=== PATIENT | male | born 1965 | race African-American/Black ===

== ENCOUNTER 2020-12-15 08:21 | Emergency (ER) | payer OTHER ==
[~2020-12-15] VITALS: Ht 175.3 cm; Wt 87.5 kg
[~2020-12-15 08:21] MED LIST: DIVA250T PO; DIVA500T4 PO; HYDR-2145 PO; IBUP-1027 PO; MIRT-34 PO
--- NOTE | 2020-12-15 08:54 | PHYS DOC ---
Past Medical History Past Medical History: Asthma, Hypertension Additional Past Medical Histor: RA, OSTEOARTHTITIS, Additional Past Surgical Histo: HERNIA X2, HEMORRHOID Smoking Status: Current Every Day Smoker Alcohol Use: None Drug Use: None General Adult EDM: Chief Complaint: DIZZY/LIGHT HEADED HPI: HPI: Patient is a 55 year old male who was in a facility for treatment, was sent over here because his blood pressure was elevated. Patient has history of asthma and high blood pressure. He has been out of his medication for a month. This morning they checked his vital signs and noted that his blood pressure was elevated. Patient complained of a mild headache so they sent him here for evaluation. Patient denies any numbness or weakness anywhere, no blurry vision, no chest pain, no abdominal pain, no nausea vomiting. Patient denies suicidal ideation denies homicidal ideation. Review of Systems: Review of Systems: Constitutional: Denies fever or chills. [] Eyes: Denies change in visual acuity. [] HENT: Denies nasal congestion or sore throat. [] Respiratory: Denies cough or shortness of breath. [] Cardiovascular: Denies chest pain or edema. [] GI: Denies abdominal pain, nausea, vomiting, bloody stools or diarrhea. [] : Denies dysuria. [] Musculoskeletal: Denies back pain or joint pain. [] Integument: Denies rash. [] Neurologic: Positive headache, no focal weakness or numbness. Endocrine: Denies polyuria or polydipsia. [] Lymphatic: Denies swollen glands. [] Psychiatric: Denies depression or anxiety. [] Heart Score: C/O Chest Pain: N/A Risk Factors: Risk Factors: DM, Current or recent (<one month) smoker, HTN, HLP, family history of CAD, obesity. Risk Scores: Score 0 - 3: 2.5% MACE over next 6 weeks - Discharge Home Score 4 - 6: 20.3% MACE over next 6 weeks - Admit for Clinical Observation Score 7 - 10: 72.7% MACE over next 6 weeks - Early Invasive Strategies Allergies: Allergies: Allergies Coded Allergies Type Severity Reaction Last Updated Verified lisinopril Allergy Severe ANGIOEDEMA 12/15/20 Yes Physical Exam: PE: Constitutional: Well developed, well nourished, no acute distress, non-toxic appearance. [] HENT: Normocephalic, atraumatic, bilateral external ears normal, oropharynx moist, no oral exudates, nose normal. [] Eyes: PERRLA, EOMI, conjunctiva normal, no discharge. [] Neck: Normal range of motion, no tenderness, supple, no stridor. [] Cardiovascular:Heart rate regular rhythm, no murmur [] Lungs & Thorax: Bilateral breath sounds clear to auscultation [] Abdomen: Bowel sounds normal, soft, no tenderness, no masses, no pulsatile masses. [] Skin: Warm, dry, no erythema, no rash. [] Back: No tenderness, no CVA tenderness. [] Extremities: No tenderness, no cyanosis, no clubbing, ROM intact, no edema. [] Neurologic: Alert and oriented X 3, normal motor function, normal sensory function, no focal deficits noted. [] Psychologic: Affect normal, judgement normal, mood normal. [] EKG: EKG: [] Radiology/Procedures: Radiology/Procedures: [][facility] [address] [place], [place] [id number] IMAGING REPORT Signed PATIENT: BERENICE AMES EACCOUNT: [id number] : 1965 LOCATION: ER AGE: 55 SEX: M EXAM STATUS: REG ER ORD. PHYSICIAN: KODY PEREZ DO REASON: dizziness, headache, hypertension PROCEDURE: CT HEAD WO CONTRAST CT HEAD/BRAIN WO Date: 12/15/2020 9:22 AM Clinical Indication: Reason: dizziness, headache, hypertension / Spl. Instructions: / History: Comparison: None. Technique: 5 mm axial tomographic images were obtained of the head without contrast. These were viewed on brain and bone windows. One or more of the following dose reduction techniques were utilized: Automated exposure control (AEC), Adjustment of mA and/or kV according to patient size, Use of iterative reconstruction technique such as ASiR, CT scan done according to ALARA and image gently/image wisely Findings: The brain parenchyma is normal in attenuation. No intra- or extra-axial mass or fluid collection. No acute hemorrhage. The ventricles are normal in size, shape, and morphology. The sutton-white matter junction is normal. The subarachnoid cisterns are patent. The visualized paranasal sinuses are normal. The visualized portions of the orbits and globes are normal. The mastoid air cells are clear. The editor continuity and script topogram shows no lytic lesion or fracture. Round metallic foreign body in the suboccipital soft tissues. Impression: No acute intracranial process. Electronically signed by: Terrell Garcia MD (12/15/2020 9:32 AM) [id number] DICTATED and SIGNED BY: TERRELL GARCIA MD DATE: 12/15/20 [id number] 0 Course & Med Decision Making: Course & Med Decision Making Pertinent Labs and Imaging studies reviewed. (See chart for details) [] Dragon Disclaimer: Dragon Disclaimer: This electronic medical record was generated, in whole or in part, using a voice recognition dictation system. Departure Departure Impression: Primary Impression: HTN (hypertension) Additional Impression: Medication refill Disposition: HOME / SELF CARE / HOMELESS Condition: STABLE Referrals: NO PCP (PCP) Please follow up with [facility] this week. [address], [address] [place] [address] Phone number: [phone] Patient Instructions: Hypertension, Medication Refill, Emergency Department Additional Instructions: Thank you for visiting our Emergency Department. We appreciate you trusting us with your care. If any additional problems come up don't hesitate to return to visit us. Please follow up with your primary care provider so they can plan additional care if needed and know about the problem that you had. If symptoms worsen come back to the Emergency Department. Any concerning symptoms that start such as chest pain, shortness of air, weakness or numbness on one side of the body, running high fevers or any other concerning symptoms return to the ER. Scripts Albuterol Sulfate (PROAIR HFA INHALER) 8.5 Gm Hfa.aer.ad 1 PUFF INH PRN Q6HRS PRN for SHORTNESS OF BREATH for 30 Days, #1 EACH 0 Refills Prov: KODY PEREZ DO 12/15/20 Amlodipine Besylate (NORVASC) 10 Mg Tablet 10 MG PO DAILY for 10 Days, #10 TAB Prov: KODY PEREZ DO 12/15/20 KODY PEREZ DO Dec 15, 2020 08:54
[2020-12-15] MEDS ORDERED: amLODIPine BESYLATE 10 MG TABLET PO ONE (09:00)
[2020-12-15] MEDS ORDERED: cloNIDine HCL 0.1 MG TABLET PO ONE (09:00)
--- NOTE | 2020-12-15 09:34 | RAD ---
CT HEAD/BRAIN WO Date: 12/15/2020 9:22 AM Clinical Indication: Reason: dizziness, headache, hypertension / Spl. Instructions: / History: Comparison: None. Technique: 5 mm axial tomographic images were obtained of the head without contrast. These were view ed on brain and bone windows. One or more of the following dose reduction techniques were utilized: A utomated exposure control (AEC), Adjustment of mA and/or kV according to patient size, Use of iterati ve reconstruction technique such as ASiR, CT scan done according to ALARA and image gently/image meraz ly Findings: The brain parenchyma is normal in attenuation. No intra- or extra-axial mass or fluid collection. No acute hemorrhage. The ventricles are normal in size, shape, and morphology. The sutton-white matter wilmer ction is normal. The subarachnoid cisterns are patent. The visualized paranasal sinuses are normal. The visualized portions of the orbits and globes are no rmal. The mastoid air cells are clear. The human resources assistant manager topogram shows no lytic lesion or fracture. Round metallic foreign body in the suboccipital soft tissues. Impression: No acute intracranial process. Electronically signed by: Terrell Garcia MD (12/15/2020 9:32 AM) [id number]
[2020-12-15] MEDS ORDERED: ALBU2.5V8 INH (10:19)
[2020-12-15] MEDS ORDERED: AMLO10TA4 PO (10:19)
[2020-12-15 10:40] VITALS: BP 156/101
== END 2020-12-15 10:40 | disposition home or self-care (01) ==
LOC: ER 08:21
DX: I10 Essential (primary) hypertension (principal); Z76.0 Encounter for issue of repeat prescription; R51.9 Headache, unspecified; J45.909 Unspecified asthma, uncomplicated; F17.200 Nicotine dependence, unspecified, uncomplicated; Z88.8 Allergy status to other drugs, medicaments and biological substances
CPT/HCPCS: 70450; 99284-25

== ENCOUNTER 2021-01-19 09:31 | Emergency (ER) | payer OTHER ==
[~2021-01-19] VITALS: Ht 175.3 cm; Wt 90.9 kg
[~2021-01-19 09:31] MED LIST changes: +ALBU2.5V8 INH; +AMLO10TA4 PO
[2021-01-19 09:38] VITALS: BP 129/78
[2021-01-19] MEDS ORDERED: PENI500T PO (09:50)
[2021-01-19] MEDS ORDERED: TRAM-48 PO (09:50)
--- NOTE | 2021-01-19 09:51 | ED.ADGEN ---
Past Medical History Past Medical History: Asthma, Hypertension Additional Past Medical Histor: RA, OSTEOARTHTITIS, Past Surgical History: Other Additional Past Surgical Histo: HERNIA X2, HEMORRHOID, achilles tendon surgery Smoking Status: Current Every Day Smoker Alcohol Use: Sober Drug Use: None General Adult EDM: Chief Complaint: TOOTH ACHE OR PAIN HPI: HPI: Patient is a 55-year-old male who arrives ambulatory to the emergency department complaining of left-sided dental pain. Patient reports he has had ongoing de ntal pain for several weeks to months. Patient states however over the past 2 days he has had increasing pain in the mandibular segment of the left side of his jaw. Patient reports she knows that he has very poor dentition and does not follow regularly with a dentist. He denies any history of fever or trauma. He further denies any recently lost teeth. He is awake, alert and nontoxic- appearing Review of Systems: Review of Systems: Constitutional: Denies fever or chills. [] Eyes: Denies change in visual acuity. [] HENT: Reported dental pain. Denies nasal congestion or sore throat. [] Respiratory: Denies cough or shortness of breath. [] Cardiovascular: Denies chest pain or edema. [] GI: Denies abdominal pain, nausea, vomiting, bloody stools or diarrhea. [] : Denies dysuria. [] Musculoskeletal: Denies back pain or joint pain. [] Integument: Denies rash. [] Neurologic: Denies headache, focal weakness or sensory changes. [] Endocrine: Denies polyuria or polydipsia. [] Lymphatic: Denies swollen glands. [] Psychiatric: Denies depression or anxiety. [] Allergies: Allergies: Allergies Coded Allergies Type Severity Reaction Last Updated Verified lisinopril Allergy Severe ANGIOEDEMA 12/15/20 Yes Physical Exam: PE: Constitutional: Well developed, well nourished, no acute distress, non-toxic appearance. [] HENT: Patient has very poor dentition with multiple areas of missing teeth. There are teeth visualized at the lower left mandibular segment which appear to be disease with mild decay. The patient's gums are otherwise normal-appearing. Normocephalic, atraumatic, bilateral external ears normal, oropharynx moist, no oral exudates, nose normal. [] Eyes: PERRLA, EOMI, conjunctiva normal, no discharge. [] Neck: Normal range of motion, no tenderness, supple, no stridor. [] Cardiovascular:Heart rate regular rhythm, no murmur [] Lungs & Thorax: Bilateral breath sounds clear to auscultation [] Abdomen: Bowel sounds normal, soft, no tenderness, no masses, no pulsatile masses. [] Skin: Warm, dry, no erythema, no rash. [] Back: No tenderness, no CVA tenderness. [] Extremities: No tenderness, no cyanosis, no clubbing, ROM intact, no edema. [] Neurologic: Alert and oriented X 3, normal motor function, normal sensory function, no focal deficits noted. [] Psychologic: Affect normal, judgement normal, mood normal. [] Current Patient Data: Vital Signs: Vital Signs Date Time Temp Pulse Resp B/P (MAP) Pulse Ox O2 Delivery O2 Flow Rate FiO2 01/19/21 09:38 98.2 79 16 129/78 (95) 97 Room Air 98.2 EKG: EKG: [] Heart Score: C/O Chest Pain: No Risk Factors: Risk Factors: DM, Current or recent (<one month) smoker, HTN, HLP, family history of CAD, obesity. Risk Scores: Score 0 - 3: 2.5% MACE over next 6 weeks - Discharge Home Score 4 - 6: 20.3% MACE over next 6 weeks - Admit for Clinical Observation Score 7 - 10: 72.7% MACE over next 6 weeks - Early Invasive Strategies Radiology/Procedures: Radiology/Procedures: [] Course & Med Decision Making: Course & Med Decision Making Pertinent Labs and Imaging studies reviewed. (See chart for details) [] Dragon Disclaimer: Dragon Disclaimer: This electronic medical record was generated, in whole or in part, using a voice recognition dictation system. Departure Departure Impression: Primary Impression: Dental caries Additional Impression: Poor dental hygiene Disposition: 01 HOME / SELF CARE / HOMELESS Condition: STABLE Referrals: NO PCP (PCP) Patient Instructions: Dental Caries, Dental Pain Scripts Penicillin V Potassium (PENICILLIN V POTASSIUM) 500 Mg Tablet 1 TAB PO QID for 10 Days, #40 TAB Prov: IRASEMA ISABEL DO 01/19/21 Tramadol Hcl (ULTRAM) 50 Mg Tablet 50 MG PO Q6HRS PRN for PAIN for 3 Days, #12 TAB 0 Refills Prov: IRASEMA ISABEL DO 01/19/21 Problem Qualifiers IRASEMA ISABEL DO January 19, 2021 09:51
== END 2021-01-19 10:07 | disposition home or self-care (01) ==
LOC: ER 09:31
DX: K02.9 Dental caries, unspecified (principal); J45.909 Unspecified asthma, uncomplicated; I10 Essential (primary) hypertension; F17.200 Nicotine dependence, unspecified, uncomplicated; Z88.6 Allergy status to analgesic agent
CPT/HCPCS: 99283